=== PATIENT | female | born 1985 ===

== ENCOUNTER 2016-08-21 13:47 | Emergency (ER) | payer OTHER ==
[2016-08-21 13:55] VITALS: TEMP 98.1
[2016-08-21 14:45] LABS: URINE BILIRUBIN NEGATIVE (NEGATIVE); URINE BLOOD LARGE (NEGATIVE); URINE GLUCOSE (UA) NEGATIVE (NEGATIVE); URINE KETONE NEGATIVE (NEGATIVE); URINE LEUKOCYTE ESTERASE SMALL Leu/uL (NEGATIVE); URINE PROTEIN 30 mg/dL (<30 mg/dL); URINE UROBILINOGEN 0.2 E.U./dL (<1 E.U./dL)
[2016-08-21 14:55] LABS: URINE APPEARANCE SL CLOUDY (CLEAR); URINE COLOR YELLOW (YELLOW)
[2016-08-21 14:57] LABS: URINE BACTERIA FEW (NEG)
--- NOTE | 2016-08-21 15:06 | ED PDOC ---
Arrival/HPI - General Chief Complaint: Female Genitourinary Time Seen by Provider: 08/21/16 14:21 Historian: Patient - History of Present Illness Narrative History of Present Illness (Text): 08/21/16 14:52 30 year old female whose past medical history includes anemia, on iron supplementation, presents to emergency department complaining of suprapubic/ pelvic region cramping that started this morning. She reports that these are similar to prior episodes of menstrual cramps. Patient states that she took 800 mg of Motrin prior to arrival. 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 She ran out of her control pills while she was vacationing, causing her to stop them for a month, and started her prescription again one month ago. She also states that she had an ultrasound of the pelvic region, and that nothing was found. Patient claims that there is heavy bleeding which she describes as "clotting". Patient denies any vaginal discharge, or sexual activity within the past 4 months. Denies dysuria. No other complaints at this time. Time/Duration: 24 hours Symptom Course: Unchanged Modifying Factors (Text): None Associated Symptoms (Text): Suprapubic and lower back pain Past Medical History - Provider Review Nursing Documentation Reviewed: Yes - Cardiac Hx Cardiac Disorders: No - Pulmonary Hx Respiratory Disorders: No - Neurological Hx Neurological Disorder: No - HEENT Hx HEENT Disorder: No - Renal Hx Renal Disorder: No - Endocrine/Metabolic Hx Endocrine Disorders: No - Hematological/Oncological Hx Anemia: Yes - Integumentary Hx Dermatological Disorder: No - Musculoskeletal/Rheumatological Hx Musculoskeletal Disorders: No - Gastrointestinal Hx Gastrointestinal Disorders: No - Genitourinary/Gynecological Other/Comment: VAGINAL BLEEDING - Psychiatric Hx Psychophysiologic Disorder: No Hx Substance Use: No Family/Social History - Physician Review Nursing Documentation Reviewed: Yes Family/Social History: Unknown Family HX Smoking Status: Never Smoked Hx Alcohol Use: Yes Frequency of alcohol use: Socially Hx Substance Use: No Allergies/Home Meds Allergies/Adverse Reactions: Allergies No Known Allergies Allergy (Verified 08/21/16 13:49) Home Medications: Home Meds Medication Instructions Recorded Confirmed Control Pills 1 tab PO DAILY 08/21/16 Review of Systems - Review of Systems Constitutional: absent: Fevers Eyes: absent: Vision Changes ENT: absent: Hearing Changes Respiratory: absent: SOB, Cough, Sputum Cardiovascular: absent: Chest Pain, Palpitations, Orthopnea, Syncope Gastrointestinal: Abdominal Pain (cramping). absent: Constipation, Diarrhea, Nausea, Vomiting Genitourinary Female: Vaginal Bleeding. absent: Dysuria, Frequency, Hematuria, Urine Output Changes, Vaginal Discharge Musculoskeletal: absent: Arthralgias, Back Pain Skin: absent: Rash Neurological: absent: Speech Changes Endocrine: absent: Diaphoresis Hemo/Lymphatic: absent: Adenopathy Psychiatric: absent: Depression Physical Exam Vital Signs Temp Pulse Resp BP Pulse Ox 08/21/16 16:37 81 16 129/73 100 08/21/16 15:45 84 16 133/76 98 08/21/16 15:32 98.1 F 75 18 135/75 100 08/21/16 13:50 98.1 F 75 23 135/75 100 Temperature: Afebrile Blood Pressure: Normal Pulse: Regular Respiratory Rate: Normal Appearance: Positive for: Well-Appearing Pain Distress: Mild Mental Status: Positive for: Alert and Oriented X 3 - Systems Exam Head: Present: Atraumatic, Normocephalic Pupils: Present: PERRL Extroacular Muscles: Present: EOMI Conjunctiva: Present: Normal Mouth: Present: Moist Mucous Membranes Neck: Present: Normal Range of Motion Respiratory/Chest: Present: Clear to Auscultation, Good Air Exchange. No: Respiratory Distress, Accessory Muscle Use Cardiovascular: Present: Regular Rate and Rhythm Abdomen: Present: Normal Bowel Sounds. No: Tenderness, Distention, Peritoneal Signs Genitourinary/Pelvic Exam: Present: Vaginal Bleeding, Other (patient refusing pelvic exam). No: Vaginal Discharge Upper Extremity: Present: Normal Inspection Lower Extremity: Present: Normal Inspection Neurological: Present: GCS=15 Psychiatric: Present: Alert, Oriented x 3, Normal Insight, Normal Concentration Medical Decision Making ED Course and Treatment: Impression: 30 year old female presents to emergency department complaining of suprapubic/ pelvic region cramping that started this morning Differential Diagnosis included but are not limited to: menstrual cramps vs Ovarian torsion Plan: -- Ultrasound -- Reassess and disposition Prior Visits: Progress Notes: 08/21/16 16:18 Poc negative. UA negative for nitrates and large leukocytes. Denies dysuria. No flank pain. Transvaginal ultrasound shows flow to ovaries b/l and R sided ovarian cyst. Patient was instructed to take anti-inflammatories and follow-up with director of vocational guidance. On reevaluation she denies pain - Lab Interpretations Lab Results: Lab Results 08/21/16 14:21: Urine Color Yellow, Urine Appearance Sl cloudy, Urine pH 6.0, Ur Specific [place] 1.010, Urine Protein 30 H, Urine Glucose (UA) Negative, Urine Ketones Negative, Urine Blood Large H, Urine Nitrate Negative, Urine Bilirubin Negative, Urine Urobilinogen 0.2, Ur Leukocyte Esterase Small H, Urine RBC 10 - 15, Urine WBC 1 - 3, Ur Epithelial Cells 1 - 3, Urine Bacteria Few - RAD Interpretation Radiology Orders: 08/21/16 14:34 TRANSVAGINAL [US] Routine - Medication Orders Current Medication Orders: Discontinued Medications Ketorolac Tromethamine (Toradol) 60 mg IM STAT STA Stop: 08/21/16 14:35 Last Admin: 08/21/16 15:57 Dose: 60 MG IM Administration Charges Document 08/21/16 15:57 SF (Rec: 08/21/16 15:57 [place] [facility] [place] [facility] [id number] Injection Site MAR Injection Site Left Deltoid Charges for Administration # of IM Administrations 1 - Scribe Statement The provider has reviewed the documentation as recorded by the Scribe Tracie Mckeon, training with Fausto Medley All medical record entries made by the Scribe were at my direction and personally dictated by me. I have reviewed the chart and agree that the record accurately reflects my personal performance of the history, physical exam, medical decision making, and the department course for this patient. I have also personally directed, reviewed, and agree with the discharge instructions and disposition. Disposition/Present on Arrival - Present on Arrival Any Indicators Present on Arrival: No History of DVT/PE: No History of Uncontrolled Diabetes: No Urinary Catheter: No History of Decub. Ulcer: No History Surgical Site Infection Following: None - Disposition Have Diagnosis and Disposition been Completed?: Yes Diagnosis: Severe menstrual cramps Disposition: HOME/ ROUTINE Disposition Time: 16:19 Patient Plan: Discharge Condition: GOOD Discharge Instructions (ExitCare): Dysmenorrhea (ED) Additional Instructions: Take motrin for pain. 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 Return to ED if condition worsens. Referrals: Corazon Chacon MD [Primary Care Provider] - Follow up with primary
[2016-08-21 15:57] VITALS: RESP 16
[2016-08-21 16:39] VITALS: BP 129/73; PULSE 81; O2SAT 100
--- NOTE | 2016-08-21 18:13 | US ---
HISTORY: suprapubic cramping, eval ovaries COMPARISON: Pelvic ultrasound performed 01/25/15 TECHNIQUE: Transvaginal pelvic ultrasound FINDINGS: UTERUS: Measures 8.4 x 5.3 x 7.3 cm. Anteverted. ENDOMETRIUM: Measures up to 9 mm in diameter. CERVIX: No cervical abnormality identified. RIGHT OVARY: Measures 2.5 x 1.6 x 1.4 cm. Blood flow is demonstrated. 1.4 x 0.8 x 0.7 cm follicle/cyst. LEFT OVARY: Measures 2.0 x 1.5 x 1.5 cm. Flow is demonstrated. FREE FLUID: No significant free fluid noted. OTHER FINDINGS: None. IMPRESSION: 1.4 x 0.8 x 0.7 cm right ovarian follicle/cyst.
== END 2016-08-21 16:47 | disposition home or self-care (01) ==
LOC: ED 13:47
DX: N94.6 Dysmenorrhea, unspecified (principal)
CPT/HCPCS: 76830; 81001; 96372; 99285; J1885